=== PATIENT | male | born 1955 | race Caucasian/White ===

== ENCOUNTER 2019-04-24 06:57 | Inpatient (IN) ==
--- NOTE | 2019-04-18 15:03 | EKG Report ---
Test Performed on : 04/18/2019 2:57:55 PM Test Reason : PAT Blood Pressure : / mmHG Vent. Rate : 084 BPM Atrial Rate : 084 BPM P-R Int : 206 ms QRS Dur : 098 ms QT Int : 366 ms P-R-T Axes : 056 062 042 degrees QTc Int : 432 ms Normal sinus rhythm. Normal ECG When compared with ECG of 13-AUG-2015 12:20, No significant change was found Confirmed by Candido Sanchez MD ([id number]) on 04/19/2019 7:43:01 PM
[2019-04-18 15:23] LABS: URINE SOURCE CLEAN CATCH
[2019-04-18 15:35] LABS: BASO# 0.04 X1000 (0.0-0.2); BASO% 0.5 % (0.0-0.8); EOS# 0.37 X1000 (0.0-0.7); HEMATOCRIT 42.8 % (42.0-52.0); IMM GRAN# 0.05 X1000 (0.0-0.04); IMM GRAN% 0.7 % (0.0-0.5); LYMPH# 2.06 X1000 (1.2-3.4); LYMPH% 27.8 % (20.5-51.1); MCH 30.4 PG (27-31); MCHC 32.7 g/dL (33-37); MCV 92.8 FL (81-99); MONO# 0.64 X1000 (0.11-0.59); MONO% 8.6 % (1.7-9.3); MPV 10.8 FL (7.4-10.4); NEUT# 4.25 X1000 (1.4-6.5); NEUT% 57.4 % (42.2-75.2); PLT 306 X1000 (130-400); RBC 4.61 XMIL (4.7-6.1); RDW 12.2 % (11.5-14.5); WBC 7.41 X1000 (4.8-10.8)
[2019-04-18 15:43] LABS: INR 1.12; PROTIME 14.6 Seconds (11.0-16.0); UR EPITHELIAL CELLS >10 /HPF (<10); URINE BACTERIA NEGATIVE /HPF; URINE RBC <10 /HPF (<10); URINE WBC <10 /HPF (<10)
[2019-04-18 15:44] LABS: HEMOGLOBIN A1C 7.2 % (4.8-6.0); PTT 27.2 Seconds (22.3-41.8)
[2019-04-18 15:45] LABS: AGAP 18; BUN 12 mg/dL (8-22); CALCIUM 9.6 mg/dL (8.8-10.2); CHLORIDE 99 mmol/L (98-107); COSMO 278; ESTIMATED GFR > 60; GLUCOSE 149 mg/dL (70-104); POTASSIUM 3.6 mmol/L (3.5-5.1); SODIUM 138 mmol/L (136-145); TCO2 21 mmol/L (25-35)
[2019-04-18 16:25] LABS: BILIRUBIN URINE SMALL (NEGATIVE); BLOOD URINE NEGATIVE (NEGATIVE); COLOR YELLOW; GLUCOSE URINE NEGATIVE (NEGATIVE); KETONE URINE TRACE mg/dL (NEGATIVE); LEUKOCYTES URINE SMALL (NEGATIVE); NITRITE URINE NEGATIVE (NEGATIVE); PH URINE 5.5; PROTEIN URINE 30 mg/dL (NEGATIVE); SP GRAVITY URINE 1.025; TURBIDITY URINE CLEAR (CLEAR); UROBILINOGEN URINE 3 mg/dL (NORMAL)
[2019-04-24] MEDS ORDERED: LYRICA ONE (07:37)
[2019-04-24] MEDS ORDERED: PEPCID ONE (07:37)
[2019-04-24] MEDS ORDERED: REGLAN ONE (07:37)
[2019-04-24] MEDS ORDERED: COLACE ONE (07:37)
[2019-04-24] MEDS ORDERED: CELEBREX ONE (07:38)
[2019-04-24] MEDS ORDERED: KEFZOL 1 GM/D5W 2 GM/100 ML IVPB ONE (07:38)
[2019-04-24] MEDS ORDERED: LR 1,000 ML ONE (07:38)
[2019-04-24] MEDS ORDERED: VERSED ONE (08:03)
[2019-04-24] MEDS ORDERED: XYLOCAINE-MPF 2% ONE (08:04)
[2019-04-24] MEDS ORDERED: FENTANYL ONE (08:04)
[2019-04-24] MEDS ORDERED: DIPRIVAN 1% 500 MG/50 ML BOTTLE ONE (08:05)
[2019-04-24] MEDS ORDERED: TORADOL ONE ×2 (08:17→10:53)
[2019-04-24] MEDS ORDERED: VANCOMYCIN ONE ×2 (08:17→10:54)
[2019-04-24] MEDS ORDERED: DURAMORPH ONE ×2 (08:17→10:53)
[2019-04-24] MEDS ORDERED: MARCAINE 0.25% PF ONE ×2 (08:17→10:53)
[2019-04-24] MEDS ORDERED: SODIUM CHLORIDE 0.9% ONE ×2 (08:17→10:54)
[2019-04-24] MEDS ORDERED: EXPAREL 1.3% ONE ×2 (08:17→10:55)
[2019-04-24] MEDS: CYKLOKAPRON 1,000 MG/NS 2,000 MG/200 ML IVPB ONE ×2 (09:15→10:24)
[2019-04-24] MEDS ORDERED: DECADRON ONE (09:58)
[2019-04-24] MEDS ORDERED: ZOFRAN ONE (09:58)
[2019-04-24] MEDS ORDERED: OFIRMEV 1000 MG/ISOTONIC SOLN 1,000 MG/100 ML BOTTLE ONE (09:58)
[2019-04-24] MEDS ORDERED: DIPRIVAN 1% ONE (10:21)
[2019-04-24] MEDS ORDERED: CYKLOKAPRON 1,000 MG/NS 1,000 MG/100 ML IVPB ONE ×2 (10:54→10:57)
--- NOTE | 2019-04-24 10:54 | OPERATIVE NOTE ---
PROCEDURE DATE: 04/24/2019 PREOPERATIVE DIAGNOSIS: Degenerative joint disease, left knee. POSTOPERATIVE DIAGNOSIS: Degenerative joint disease, left knee. PROCEDURE PERFORMED: Left total knee replacement. SURGEON: Troy Fuller MD. HAND BANDER: SANTIAGO Anthony. Mr. Mckeon was necessary for proper retraction and manipulation of the knee. ANESTHESIA: Spinal. COMPLICATION: None. PROCEDURE IN DETAIL: A 63-year-old male presents for a left knee replacement. Risks, benefits, and no guarantees were discussed and he is willing to proceed. He was taken to the operating room and satisfactory anesthesia obtained. The left knee was prepped and draped in usual sterile fashion. A time-out was taken to confirm operative site, procedure, and patient. The leg was wrapped with an Esmarch and tourniquet inflated to 300 mmHg. A midline incision was made over the front of the left knee followed by a quad tendon sparing arthrotomy medially. The patella was everted and resurfaced with freehand technique. With the patella subluxed laterally, the knee was flexed, an intramedullary hole made in the distal femur and the distal femoral cutting block secured in 5 degrees of valgus. The distal femoral resection was made and the femur sized to a size 8 DePuy Attune femoral implant. The 4 in 1 block was secured to the distal femur and the anterior, posterior, and chamfer cuts sequentially made. The notch was created for the posterior stabilized design using the provided notch guide. Any remaining osteophytes were debrided from the femur. The knee was flexed and a PCL retractor placed behind the tibia to protect the neurovascular bundle. The tibial cutting block was secured with extramedullary alignment and the tibial resection made. Flexion and extension gaps were equal with a 7 mm spacer. Tibia was sized to a size 8 tibial tray. A trial reduction was performed with a size 8 tibial tray, a size 8 femoral component and a 7 mm trial poly with good range of motion and stability. The patella was sized to a 41 medialized dome patella. Drill holes were placed for the patellar implant as well as the femoral implant. All bony surfaces were thoroughly irrigated with pulsatile lavage. Cement with a gram of vancomycin was then utilized to cement a DePuy Attune size 8 rotating platform tibial base plate, a size 8 left posterior stabilized femoral component and a 41 medialized dome patella. While the cement cured, the joint capsule was injected with Exparel for pain management. A Hemovac drain was placed. Any excess cement was removed with a [place] elevator osteotome. After curing the cement, a size 8 posterior stabilized poly with a 7 mm thickness was inserted in the tibial tray and the knee reduced. Final range of motion was assessed from 0 to 120 degrees with midline patellar tracking and excellent soft tissue balance. The arthrotomy was copiously irrigated with irrigant. It was closed over the drain with #1 Vicryl in the arthrotomy, 2-0 Vicryl in the subcutaneous, and Dermabond skin type closure. Sterile dressings were applied and tourniquet released with good return of capillary blood flow. No intraoperative complications were noted. Instrument count and sponge count were correct at the time of closure. cc: Malachi Fuller MD
[2019-04-24] MEDS ORDERED: OXY IR ONE (11:11)
[2019-04-24] MEDS ORDERED: NS 1,000 ML ONE (11:11)
[2019-04-24] MEDS ORDERED: ZOFRAN IV PRN (12:00)
[2019-04-24] MEDS ORDERED: OXY IR PO PRN (12:00)
[2019-04-24] MEDS ORDERED: MORPHINE IV PRN ×2 (12:00)
--- NOTE | 2019-04-24 12:07 | Diag Imaging Result Doc PS360 ---
KNEE 1-2 VIEWS-LEFT - 04/24/2019 INDICATION: post op total knee TECHNIQUE: Two views COMPARISON: None FINDINGS: There is a left total knee arthroplasty in good position. Alignment is anatomic. No hardware fracture or loosening. IMPRESSION: No complication. Electronically signed by Vinay Byrnes 04/24/2019 12:05 PM
[2019-04-24] MEDS: ULTRAM PO SCH ×2 (12:54→18:24)
[2019-04-24] MEDS: MORPHINE IV PRN (12:59)
[2019-04-24] MEDS ORDERED: FLU VACCINE IM ONE (13:31)
--- NOTE | 2019-04-24 16:51 | ORTHOPAEDICS PROGRESS NOTE ---
DATE: 04/24/2019 SUBJECTIVE: Mr. Munson is seen status post joint replacement. OBJECTIVE: Vital signs: At the present time he is afebrile with stable vital signs. Extremities: His lower extremity neurovascularly intact with good motion. The bandage is clean and dry about his knee. ASSESSMENT AND PLAN: Postop knee replacement films look good. He is comfortable at the present time. We will plan on mobilizing him and transferring home when he is doing well. cc: Malachi Fuller MD
[2019-04-24] MEDS: TYLENOL PO SCH (18:25)
[2019-04-24] MEDS: NORVASC PO SCH (18:25)
[2019-04-24] MEDS: GLUCOPHAGE PO SCH (18:25)
[2019-04-24] MEDS: KEFZOL 2 GM/D5W 2 GM/50 ML IVPB IV SCH (18:52)
[2019-04-24] MEDS: CELEBREX PO SCH (20:43)
[2019-04-24] MEDS: COLACE PO SCH (20:43)
[2019-04-24] MEDS: PERIDEX MT SCH (20:43)
[2019-04-24] MEDS: NEURONTIN PO SCH (20:43)
[2019-04-24] MEDS: NS 1,000 ML IV SCH (20:44)
[2019-04-24] MEDS ORDERED: ZOCOR PO SCH (21:00)
[2019-04-24] MEDS ORDERED: CELEXA PO SCH (21:00)
[2019-04-24] MEDS: OXY IR PO PRN (23:58)
[2019-04-25] MEDS: KEFZOL 2 GM/D5W 2 GM/50 ML IVPB IV SCH (02:06)
[2019-04-25] MEDS: MORPHINE IV PRN (02:18)
[2019-04-25 02:19] LABS: URINE SOURCE CATH
[2019-04-25 02:21] LABS: BILIRUBIN URINE SMALL (NEGATIVE); BLOOD URINE NEGATIVE (NEGATIVE); COLOR YELLOW; GLUCOSE URINE 70 mg/dL (NEGATIVE); KETONE URINE TRACE mg/dL (NEGATIVE); LEUKOCYTES URINE NEGATIVE (NEGATIVE); NITRITE URINE NEGATIVE (NEGATIVE); PROTEIN URINE 30 mg/dL (NEGATIVE); SP GRAVITY URINE 1.035; TURBIDITY URINE CLEAR (CLEAR); UROBILINOGEN URINE 2 mg/dL (NORMAL)
[2019-04-25 02:27] LABS: UR EPITHELIAL CELLS <10 /HPF (<10); URINE BACTERIA NEGATIVE /HPF; URINE RBC <10 /HPF (<10); URINE WBC <10 /HPF (<10)
[2019-04-25 02:42] LABS: URINE CASTS NONE SEEN; URINE CRYSTALS NONE SEEN; URINE SMALL ROUND CELLS NONE SEEN; URINE YEAST NONE SEEN
[2019-04-25] MEDS: DUONEB (A & A) INH PRN ×2 (03:13→07:49)
[2019-04-25] MEDS: NS 1,000 ML IV SCH (04:16)
[2019-04-25] MEDS: ULTRAM PO SCH ×2 (06:17)
[2019-04-25] MEDS: TYLENOL PO SCH ×2 (06:18→07:36)
[2019-04-25 06:28] LABS: HEMATOCRIT 41.1 % (42.0-52.0); HEMOGLOBIN 12.8 g/dL (14.0-18.0)
[2019-04-25] MEDS ORDERED: PRILOSEC PO SCH (07:00)
[2019-04-25 07:01] LABS: CALCIUM 8.3 mg/dL (8.8-10.2); CREATININE 1.3 mg/dL (0.7-1.2); POTASSIUM 5.4 mmol/L (3.5-5.1)
[2019-04-25] MEDS ORDERED: ASPIRIN PO SCH (09:00)
[2019-04-25] MEDS ORDERED: LOFIBRA PO SCH (09:00)
[2019-04-25] MEDS ORDERED: COZAAR PO SCH (09:00)
[2019-04-25] MEDS ORDERED: PEPCID PO SCH (09:00)
[2019-04-25] MEDS: PERIDEX MT SCH (09:13)
[2019-04-25] MEDS: GLUCOPHAGE PO SCH (09:14)
[2019-04-25] MEDS: COLACE PO SCH (09:15)
[2019-04-25] MEDS: NEURONTIN PO SCH (09:15)
[2019-04-25] MEDS: NORVASC PO SCH (09:15)
[2019-04-25] MEDS: CELEBREX PO SCH (09:16)
[2019-04-25] MEDS: OXY IR PO PRN ×2 (09:20→14:17)
[2019-04-25 12:04] VITALS: BP 101/74
== END 2019-04-25 16:20 | disposition home health service (06) | DRG 470 ==
LOC: 4N 06:57 → PAT 06:57 → OBSVTOIN 11:54
PROVIDERS: ADMIT Orthopaedic Surgery Adult Reconstructive Orthopaedic Surgery; ATTEND Orthopaedic Surgery Adult Reconstructive Orthopaedic Surgery